=== PATIENT | female | born 1965 | race Hispanic/Latino ===

== ENCOUNTER 2022-05-13 10:19 | Emergency (ER) | payer BC ==
[~2022-05-13] VITALS: Ht 157.5 cm; Wt 86.2 kg
[2022-05-13] MEDS ORDERED: KETOROLAC TROMETHAMINE 30 MG/ML VIAL IM STA (10:40)
[2022-05-13] MEDS ORDERED: HYDROCODONE/APAP 5MG-325MG TAB PO ONE (10:45)
[2022-05-13] MEDS ORDERED: DEXAMETHASONE SOD PHOS 10 MG/1 ML VIAL IM ONE (10:45)
[2022-05-13] MEDS ORDERED: GABAPENTIN100 MG PO (10:46)
== END 2022-05-13 12:35 | disposition home or self-care (01) ==
LOC: ER 10:30
DX: M54.41 Lumbago with sciatica, right side (principal)
CPT/HCPCS: 99284; J1100; J1885

== ENCOUNTER 2023-01-14 08:00 | Outpatient (RCR) | payer BC ==
[~2023-01-14 08:00] MED LIST: GABAPENTIN100 MG PO
== END 2023-01-23 ==
LOC: PT 08:00
PROVIDERS: ATTEND Specialist
DX: M75.101 Unspecified rotator cuff tear or rupture of right shoulder, not specified as traumatic (principal)

== ENCOUNTER 2023-02-18 07:00 | Outpatient (RCR) | payer BC | END 2023-02-22 | LOC: PT 07:00 | PROVIDERS: ATTEND Specialist | DX: M75.101 Unspecified rotator cuff tear or rupture of right shoulder, not specified as traumatic (principal) ==